=== PATIENT | female | born 1980 | race Caucasian/White ===

== ENCOUNTER → 2016-06-27 | Outpatient (CLI) | payer OTHER | LOC: OD 09:13 | PROVIDERS: ATTEND Physician Assistant | DX: R07.9 Chest pain, unspecified (principal) | CPT/HCPCS: 71020 ==

== ENCOUNTER → 2018-07-25 | Outpatient (CLI) | payer OTHER ==
--- NOTE | 2018-07-25 16:07 | RADIOLOGY REPORT (SQ) ---
EXAM DESCRIPTION: U/S EXTREMITY NONVASCULAR COMP COMPLETED DATE/TIME: 07/25/2018 3:07 pm REASON FOR STUDY: M76.892 OTH ENTHESOPATHIES OF LEFT LOWER LIMB, EXCLUDING FOOT M76.892 OTH ENTHESO PATHIES OF LEFT LOWER LIMB, EXCLUDING PHILIPP COMPARISON: None. TECHNIQUE: Static and real time scott scale ultrasound Doppler spectral analysis, and color Doppler a cquired in the popliteal fossa on the left. Patient had sudden onset of left leg pain during running about 1 month ago. Patient was scanned by both myself as well as the technologist. LIMITATIONS: None. FINDINGS: POPLITEAL ARTERY: Popliteal artery is normal. No aneurysm. No significant stenosis. POPLITEAL VEIN:Popliteal vein is normal. No thrombosis. SOFT TISSUES: Along the distal 3rd of the medial head biceps femoris, a resolving intramuscular hemat jeff is present at the distal musculotendinous junction. There is resolving hematoma measuring about 3 x 2 cm in size at the distal biceps femoris musculotendinous junction. The distal tendon is intact . OTHER:No other significant findings. IMPRESSION: 3 x 2 cm Intramuscular hematoma along the distal 3rd, medial head biceps femoris muscle at the musculotendinous junction. Tendon is grossly intact by ultrasound. TECHNICAL DOCUMENTATION: JOB ID: [id number] [employer]- All Rights Reserved Reading location - IP/workstation name: [email or web address]
== END ==
LOC: RAD 13:37
PROVIDERS: ATTEND Physician Assistant
DX: M76.892 Other specified enthesopathies of left lower limb, excluding foot (principal)
CPT/HCPCS: 76881